=== PATIENT | female | born 1985 | race Caucasian/White ===

== ENCOUNTER 2019-01-21 10:06 | Emergency (ER) | payer MEDICAID ==
[~2019-01-21] VITALS: Ht 154.9 cm; Wt 66.2 kg
--- NOTE | 2019-01-21 10:12 | NUR ---
PATIENT AMBULATED STEADY GAIT TO BED 9.
[2019-01-21 10:15] VITALS: BP 131/72
--- NOTE | 2019-01-21 10:21 | NUR ---
PATIENT COMES TO ED FOR MEDICATION REFILL S/P RIGHT PINKY SURGERY YESTERDAY. HAND IS WRAPPED IN BANDAGE AND PUT ON A SLING. NO SWELLING OR DISCHARGE ON SURGICAL SITE. PT DENIES ANY FEVER AT THIS TIME; PATIENT STATES THROBBING PAIN OF 10/10 AT THIS TIME. VSS; PATIENT POSITIONED FOR COMFORT; HOB ELEVATED; BEDRAILS UP X2; BED DOWN. ER MD MADE AWARE OF PT STATUS. NO PMH NO MEDS NO ALLERGIES
[2019-01-21] MEDS ORDERED: KETOROLAC 30 MG/ML VIAL IM ONE (10:35)
[2019-01-21 10:46] VITALS: BP 131/72
== END 2019-01-21 10:46 | disposition home or self-care (01) ==
LOC: MED 10:06
DX: M79.644 Pain in right finger(s) (principal); Z76.0 Encounter for issue of repeat prescription
CPT/HCPCS: 96372; 99283; J1885